=== PATIENT | male | born 1975 | race Caucasian/White ===

== ENCOUNTER 2017-05-24 13:11 | Inpatient (IN) | payer SELFPAY ==
[2017-05-24 14:04] LABS: ADD MAN DIFF? NO
[2017-05-24 14:08] LABS: BASO # 0.1 x10^3/uL (0.0-0.2); BASO % 1 % (0-3); EOS # 0.3 x10^3/uL (0.0-0.7); EOS % 4 % (0-3); HEMATOCRIT 50.6 % (39.0-53.0); HEMOGLOBIN 17.1 g/dL (13.0-17.5); LYMPH # 1.6 x10^3/uL (1.0-4.8); LYMPH % 18 % (24-48); MEAN CORPUSCULAR HEMOGLOBIN 29 pg (25-35); MEAN CORPUSCULAR HGB CONC 34 g/dL (31-37); MEAN CORPUSCULAR VOLUME 86 fL (79-100); MONO # 0.6 x10^3/uL (0.0-1.1); MONO % 7 % (0-9); NEUT # 6.3 x10^3uL (1.8-7.7); NEUT % 70 % (31-73); PLATELET COUNT 280 x10^3/uL (140-400); RED BLOOD COUNT 5.91 x10^6/uL (4.30-5.70); RED CELL DISTRIBUTION WIDTH 13.4 % (11.5-14.5)
[2017-05-24] MEDS: LABETALOL 20 MG/4 ML DISP.SYRIN. IVP (14:18)
[2017-05-24 14:23] LABS: ETHANOL < 10 mg/dL (0-10)
[2017-05-24 14:24] LABS: ANION GAP 8 (6-14); BLOOD UREA NITROGEN 15 mg/dL (8-26); BUN/CREATININE RATIO 17 (6-20); CARBON DIOXIDE 27 mmol/L (21-32); CHLORIDE 101 mmol/L (98-107); CREATININE 0.9 mg/dL (0.7-1.3); GLUCOSE 155 mg/dL (70-99); POTASSIUM 4.3 mmol/L (3.5-5.1); SODIUM 136 mmol/L (136-145)
[2017-05-24 14:25] LABS: BILIRUBIN,URINE NEGATIVE (NEG); CLARITY,URINE CLEAR; COLOR,URINE YELLOW; GLUCOSE,URINE NEGATIVE (NEG); NITRITE,URINE NEGATIVE (NEG); PH,URINE 5.5; PROTEIN,URINE NEGATIVE (NEG-TRACE); UROBILINOGEN,URINE 0.2 mg/dL (0.2 mg/dL)
[2017-05-24 14:27] LABS: TROPONINI < 0.017 ng/mL (0.000-0.055)
[2017-05-24] MEDS: ONDANSETRON PF 4 MG/2 ML VIAL. IV (14:27)
[2017-05-24 14:28] LABS: PARTIAL THROMBOPLASTIN TIME 31 SEC (24-38); PROTHROMBIN TIME PATIENT 12.4 SEC (11.7-14.0)
[2017-05-24] MEDS: MORPHINE SULFATE 4 MG/ML DISP.SYRIN. IV ×2 (14:28→17:47)
[2017-05-24 14:31] LABS: NT-PRO BNP 51 pg/mL (0-124)
[2017-05-24 14:32] LABS: AMPHETAMINE/METHAMPHETAMINE NEG (NEG); BARBITURATES NEG (NEG); BENZODIAZEPINES NEG (NEG); CANNABINOIDS POS (NEG); COCAINE NEG (NEG); D-DIMER < 0.27 ug/mlFEU (0.00-0.50); ETHANOL, URINE NEG (NEG); METHADONE NEG (NEG); OPIATES NEG (NEG); PHENCYCLIDINE NEG (NEG)
[2017-05-24 14:33] LABS: BACTERIA,URINE 0 /HPF (0-FEW); RBC,URINE 0 /HPF (0-2); SQUAMOUS EPITHELIAL CELL,UR OCC /LPF; WBC,URINE 0 /HPF (0-4)
[2017-05-24 14:34] LABS: ALBUMIN 3.4 g/dL (3.4-5.0); ALBUMIN/GLOBULIN RATIO 0.9 (1.0-1.7); ALK PHOS 71 U/L (46-116); ALT (SGPT) 26 U/L (16-63); AST (SGOT) 15 U/L (15-37); LIPASE 1052 U/L (73-393); TOTAL BILIRUBIN 0.3 mg/dL (0.2-1.0); TOTAL PROTEIN 7.1 g/dL (6.4-8.2)
[2017-05-24] MEDS ORDERED: NICOTINE 21MG PATCH. TD (15:15)
[2017-05-24] MEDS ORDERED: LABETALOL 20 MG/4 ML DISP.SYRIN. IVP (15:15)
[2017-05-24] MEDS ORDERED: MORPHINE SULFATE 4 MG/ML DISP.SYRIN. IV (15:15)
[2017-05-24] MEDS ORDERED: IBUPROFEN 400 MG TABLET. PO (15:15)
[2017-05-24] MEDS ORDERED: ONDANSETRON PF 4 MG/2 ML VIAL. IV ×2 (15:15)
[2017-05-24] MEDS ORDERED: CONTRAST GIVEN MC (15:45)
[2017-05-24] MEDS: IOHEXOL 300 MG/ML 100ML VIAL. IV (15:45)
[2017-05-24] MEDS: IOHEXOL 240 MG/ML 50ML VIAL. IV (15:45)
[2017-05-24] MEDS: IV NORMAL SALINE 1000ML BAG 1,000 ML IV (19:25)
[2017-05-24] MEDS: oxyCODONE IR 5 MG TABLET PO ×2 (19:36→22:51)
[2017-05-24] MEDS: TEMAZEPAM 7.5 MG CAPSULE PO (21:29)
[2017-05-25] MEDS: ACETAMINOPHEN 325 MG TABLET. PO ×2 (07:59→14:37)
[2017-05-25] MEDS: oxyCODONE IR 5 MG TABLET PO ×3 (08:00→20:49)
[2017-05-25] MEDS: METOPROLOL SUCC 24HR ER 50 MG TAB.ER.24H. PO (18:55)
[2017-05-25] MEDS: amLODIPine BESYLATE 10 MG TABLET PO (20:49)
[2017-05-25] MEDS: TEMAZEPAM 7.5 MG CAPSULE PO (20:49)
[2017-05-25] MEDS: diphenhydrAMINE HCL 25 MG CAPSULE PO (23:09)
[2017-05-26 05:00] LABS: ADD MAN DIFF? NO
[2017-05-26 05:28] LABS: BASO # 0.1 x10^3/uL (0.0-0.2); BASO % 1 % (0-3); EOS # 0.3 x10^3/uL (0.0-0.7); EOS % 4 % (0-3); HEMATOCRIT 50.3 % (39.0-53.0); HEMOGLOBIN 16.9 g/dL (13.0-17.5); LYMPH # 1.8 x10^3/uL (1.0-4.8); LYMPH % 24 % (24-48); MEAN CORPUSCULAR HEMOGLOBIN 29 pg (25-35); MEAN CORPUSCULAR HGB CONC 34 g/dL (31-37); MEAN CORPUSCULAR VOLUME 87 fL (79-100); MONO # 0.6 x10^3/uL (0.0-1.1); MONO % 8 % (0-9); NEUT % 63 % (31-73); PLATELET COUNT 272 x10^3/uL (140-400); RED CELL DISTRIBUTION WIDTH 13.8 % (11.5-14.5); WHITE BLOOD COUNT 7.9 x10^3/uL (4.0-11.0)
[2017-05-26 05:51] LABS: TROPONINI < 0.017 ng/mL (0.000-0.055)
[2017-05-26 05:59] LABS: ALBUMIN 3.2 g/dL (3.4-5.0); ALBUMIN/GLOBULIN RATIO 0.9 (1.0-1.7); ALK PHOS 69 U/L (46-116); ALT (SGPT) 31 U/L (16-63); ANION GAP 5 (6-14); AST (SGOT) 21 U/L (15-37); BLOOD UREA NITROGEN 16 mg/dL (8-26); BUN/CREATININE RATIO 18 (6-20); CALCIUM 8.9 mg/dL (8.5-10.1); CARBON DIOXIDE 31 mmol/L (21-32); CHLORIDE 101 mmol/L (98-107); CREATININE 0.9 mg/dL (0.7-1.3); GLUCOSE 104 mg/dL (70-99); POTASSIUM 4.2 mmol/L (3.5-5.1); SODIUM 137 mmol/L (136-145); TOTAL BILIRUBIN 0.3 mg/dL (0.2-1.0); TOTAL PROTEIN 6.7 g/dL (6.4-8.2)
[2017-05-26] MEDS: MORPHINE SULFATE 4 MG/ML DISP.SYRIN. IV (06:42)
[2017-05-26] MEDS: REGADENOSON 0.4 MG/5 ML DISP.SYRIN. IV (09:35)
[2017-05-26] MEDS: METOPROLOL SUCC 24HR ER 50 MG TAB.ER.24H. PO (10:03)
[2017-05-26] MEDS: amLODIPine BESYLATE 10 MG TABLET PO (10:04)
[2017-05-26] MEDS: oxyCODONE IR 5 MG TABLET PO (10:34)
== END 2017-05-26 15:45 | disposition home or self-care (01) | DRG 313 ==
LOC: ER 13:11 → 5 NORTH 15:03
DX: R07.9 Chest pain, unspecified (principal); Z68.41 Body mass index [BMI] 40.0-44.9, adult; R07.2 Precordial pain; E66.9 Obesity, unspecified; G89.29 Other chronic pain; I10 Essential (primary) hypertension; F19.10 Other psychoactive substance abuse, uncomplicated; K21.9 Gastro-esophageal reflux disease without esophagitis; K80.20 Calculus of gallbladder without cholecystitis without obstruction; M54.5 Low back pain; Z88.8 Allergy status to other drugs, medicaments and biological substances
CPT/HCPCS: 36415; 71045; 74177; 76705; 78452; 80053; 80307; 81001; 83690; 83735; 83880; 84484; 85025; 85379; 85610; 85730; 93005; 93017; 96374; 96375; A9500; G0480; J2270; J2405; J2785; J3490; J7030; Q0163; Q9966; Q9967